=== PATIENT | male | born 1970 | race Caucasian/White ===

== ENCOUNTER → 2019-12-11 | Outpatient (CLI) | payer BC ==
[~2019-12-11] MED LIST: CATHETER FLUSH 10 ML SYR IV PRN; HOLD METFORMIN - RECEIVED CONTRAST 20 ML VIAL IV SCH; IOHEXOL 350 MG/ML 100 ML (OMNIPAQUE 350) VIAL IV ONE; NS 100 ML (IVPB) BAG IV ONE
[2019-12-11 14:56] LABS: HEMOGLOBIN 16.8 G/DL (13.3-17.7); MEAN PLATELET VOLUME 9.9 FL (7.4-10.4); RED CELL DISTRIBUTION WIDTH 12.1 % (10.0-14.5); WHITE BLOOD COUNT 12.5 10^3/uL (4.3-11.0)
[2019-12-11 15:14] LABS: ALBUMIN 4.8 GM/DL (3.2-4.5); CHLORIDE 98 MMOL/L (98-107)
[2019-12-11 15:15] LABS: POTASSIUM 3.7 MMOL/L (3.6-5.0); SODIUM 136 MMOL/L (135-145)
[2019-12-11 15:16] LABS: CALCIUM 9.8 MG/DL (8.5-10.1)
[2019-12-11 15:17] LABS: GLUCOSE 85 MG/DL (70-105); TOTAL PROTEIN 8.6 GM/DL (6.4-8.2)
[2019-12-11 15:18] LABS: CARBON DIOXIDE 26 MMOL/L (21-32)
[2019-12-11 15:19] LABS: BILIRUBIN,TOTAL 0.6 MG/DL (0.1-1.0)
[2019-12-11 15:20] LABS: ALKALINE PHOSPHATASE 78 U/L (40-136); CREATININE SERUM 1.18 MG/DL (0.60-1.30); GFR ESTIMATED > 60
[2019-12-11 15:21] LABS: BUN/CREATININE RATIO 12
[2019-12-11 15:23] LABS: ALANINE AMINOTRANSFERASE 118 U/L (0-55)
--- NOTE | 2019-12-11 16:14 | Diagnostic Imaging Report ---
EXAMINATION: CT Abdomen and Pelvis with intravenous contrast. TECHNIQUE: Multiple contiguous axial images were obtained through the abdomen and pelvis after the uneventful administration of intravenous contrast. All CT scans use one or more of the following dose optimizing techniques: automated exposure control, MA and/or KvP adjustment based on a patient size and exam type, or iterative reconstruction. HISTORY: Abdominal pain, umbilical hernia. COMPARISON: None available. FINDINGS: Limited views of the lower thorax are unremarkable. Liver is steatotic. No suspicious liver lesions are seen. There is no biliary ductal dilation. Gallbladder is normal. Pancreas is normal. Spleen is normal. Adrenal glands are normal. The kidneys are normal. There is no hydronephrosis. Urinary bladder is normal. Visualized bowel is normal in caliber without obstruction or inflammation. There is a small fat-containing umbilical hernia with a 10 mm mouth. There is no stranding in the hernia sac to indicate ischemia of the contents. No free fluid or air. No abdominal or pelvic lymphadenopathy. Aorta is normal in caliber without aneurysm. There are no suspicious osseous lesions. IMPRESSION: 1. Fat-containing umbilical hernia with a 10 mm mouth. Dictated by: Dictated on workstation # [id number]
[2019-12-14 17:01] LABS: AMYLASE 61 U/L (25-125)
[2019-12-14 17:10] LABS: LIPASE 40 U/L (8-78)
== END ==
LOC: RAD 14:45
PROVIDERS: ATTEND Physician Assistant
DX: K42.9 Umbilical hernia without obstruction or gangrene (principal)
CPT/HCPCS: 36415; 74177; 80053; 82150; 83690; 85027

== ENCOUNTER → 2019-12-22 | Outpatient (CLI) | payer BC ==
--- NOTE | 2019-12-22 09:49 | Diagnostic Imaging Report ---
CLINICAL INDICATION: Patient has chronic low back pain. Exam: MRI of the lumbar spine performed without IV contrast. Sagittal T2, sagittal T1, sagittal T2 fat-sat, and axial T2. Comparison: None. Findings: Five lumbar type vertebra are identified. Lumbar spine has normal alignment with no fracture or dislocation. The lumbar vertebra have normal T1 and T2 signal. The visualized portions of the distal spinal cord, conus medullaris, and cauda equina have normal anatomic appearance. The conus medullaris tip is seen at the upper L2 vertebral body level. No paraspinal soft tissue abnormality is seen. T11-T12: There is a subtle posterior disk bulge. There is no significant central canal or neural foramen narrowing. There is a chronic Schmorl's node involving the inferior T11 vertebra. There is partially visualized hypertrophic anterior disk spurs. T12-L1: There is chronic Schmorl's node involving the inferior endplate of the T12 vertebra. There is no significant disk bulge posteriorly. There is no significant central spinal canal or neural foramen narrowing. L1-L2: There is a minimal diffuse disk bulge with mild to moderate loss of disk space height. There is no significant central spinal canal or neural foramen narrowing. L2-L3: There is a mild diffuse disk bulge and mild bilateral facet arthropathy. There is moderate right neural foramen narrowing and moderate to severe left neural foramen narrowing. There is minimal central canal narrowing. L3-L4: There is a diffuse disk bulge with disk spurs extending into the foraminal regions bilaterally. There is mild to moderate bilateral facet arthropathy. There is mild central canal stenosis, severe right neural foramen narrowing and moderate to severe left neural foramen narrowing. There is Modic type I degenerative signal changes involving the L3-L4 endplates. L4-L5: There is mild diffuse disk bulge with disk spurs extending into the left foraminal region. There is moderate bilateral facet arthropathy. There is no significant central canal narrowing. There is moderate to severe right neural foramen narrowing and severe left neural foramen narrowing. There is no significant central canal narrowing. L5-S1: There is a subtle posterior disk bulge. There is mild to moderate bilateral facet arthropathy. There is no significant central canal narrowing. There is mild bilateral neural foramen narrowing (right side more than the left). IMPRESSION: 1: There is no acute lumbar spine fracture or dislocation. 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 Dictated by: Dictated on workstation # [id number]
== END ==
LOC: RAD 07:31
PROVIDERS: ATTEND Physician Assistant
DX: M51.17 Intervertebral disc disorders with radiculopathy, lumbosacral region (principal); M47.27 Other spondylosis with radiculopathy, lumbosacral region; M48.07 Spinal stenosis, lumbosacral region; M51.45 Schmorl's nodes, thoracolumbar region; M51.14 Intervertebral disc disorders with radiculopathy, thoracic region
CPT/HCPCS: 72148

== ENCOUNTER 2020-01-08 09:47 | Outpatient (CLI) | payer BC ==
[~2020-01-08] VITALS: Ht 177.8 cm; Wt 120.5 kg
[2020-01-08] MEDS ORDERED: OMEG100032 PO (10:12)
[2020-01-08] MEDS ORDERED: MULT-1102 PO (10:12)
[2020-01-08] MEDS ORDERED: LISI10TA2 PO (10:12)
[2020-01-08] MEDS ORDERED: CETI10TA17 PO (10:12)
[2020-01-08] MEDS ORDERED: THYR90TA PO (10:12)
== END 2020-01-08 10:24 | disposition home or self-care (01) ==
LOC: PREOP 09:47
PROVIDERS: ATTEND Surgery
DX: Z01.818 Encounter for other preprocedural examination (principal)

== ENCOUNTER 2020-01-14 06:11 | Day surgery (SDC) | payer BC ==
[~2020-01-14] VITALS: Ht 177.8 cm; Wt 120.5 kg
[2020-01-14] VITALS (11 sets, daily range): BP systolic 112–155; BP diastolic 65–99
[~2020-01-14 06:11] MED LIST changes: -CATHETER FLUSH 10 ML SYR IV PRN; +CETI10TA17 PO; -HOLD METFORMIN - RECEIVED CONTRAST 20 ML VIAL IV SCH; -IOHEXOL 350 MG/ML 100 ML (OMNIPAQUE 350) VIAL IV ONE; +LISI10TA2 PO; +MULT-1102 PO; -NS 100 ML (IVPB) BAG IV ONE; +OMEG100032 PO; +THYR90TA PO
[2020-01-14] MEDS ORDERED: CLINDAMYCIN 600 MG/50 ML IVPB 50 ML IV ONE (06:30)
[2020-01-14] MEDS: LACTATED RINGERS 1,000 ML IV PRN ×2 (06:47→08:40)
[2020-01-14 06:58] LABS: BASOPHILS % (AUTO) 1 % (0-10); EOSINOPHILS # (AUTO) 0.2 10^3/uL (0.0-0.3); EOSINOPHILS % (AUTO) 3 % (0-10); HEMATOCRIT 46 % (40-54); HEMOGLOBIN 15.5 g/dL (13.3-17.7); LYMPHOCYTES # (AUTO) 1.5 10^3/uL (1.0-4.0); LYMPHOCYTES % (AUTO) 23 % (12-44); MEAN CORPUSCULAR HEMOGLOBIN 33 pg (25-34); MEAN CORPUSCULAR HGB CONC 34 g/dL (32-36); MEAN CORPUSCULAR VOLUME 97 fL (80-99); MONOCYTES # (AUTO) 0.9 10^3/uL (0.0-1.0); MONOCYTES % (AUTO) 14 % (0-12); NEUTROPHILS # (AUTO) 3.6 10^3/uL (1.8-7.8); NEUTROPHILS % (AUTO) 58 % (42-75); PLATELET COUNT 205 10^3/uL (130-400); WHITE BLOOD COUNT 6.2 10^3/uL (4.3-11.0)
[2020-01-14] MEDS ORDERED: NEOSTIGMINE 3 MG/3 ML VIAL ONE (07:03)
[2020-01-14] MEDS ORDERED: ROCURONIUM 10 MG/ML 5 ML SYRINGE IV ONE (07:03)
[2020-01-14] MEDS ORDERED: SEVOFLURANE (ULTANE) 15 ML INHAL SOLN ONE ×2 (07:03→09:28)
[2020-01-14] MEDS ORDERED: proPOfol 200 MG/20 ML (DIPRIVAN) VIAL IV ONE (07:03)
[2020-01-14] MEDS ORDERED: LIDOCAINE PF 2% 5 ML (XYLOCAINE) VIAL ONE (07:03)
[2020-01-14] MEDS ORDERED: MIDAZOLAM 2 MG/2 ML (VERSED) VIAL ONE (07:03)
[2020-01-14] MEDS ORDERED: GLYCOPYRROLATE 0.2 MG/ML (ROBINUL) 2 ML VIAL ONE (07:03)
[2020-01-14] MEDS ORDERED: ONDANSETRON 4 MG/2 ML (SDV) Z0FRAN ONE (07:03)
[2020-01-14] MEDS ORDERED: fentaNYL INJECTION 100 MCG/2 ML AMP ONE (07:04)
[2020-01-14] MEDS ORDERED: BUP/EPI 0.25% 1:200,000 (MARCAINE) 30 ML VIAL ONE (07:17)
--- NOTE | 2020-01-14 07:57 | Progress Note-Pre Operative ---
Pre-Operative Progress Note H&P Reviewed The H&P was reviewed, patient examined and no changes noted. Date Seen by Provider: Jan 14, 2020 Time Seen by Provider: 07:56 Date H&P Reviewed: Jan 14, 2020 Time H&P Reviewed: 07:57 Pre-Operative Diagnosis: umbilical hernia GARRY DUBOIS DO Jan 14, 2020 07:57
[2020-01-14] MEDS ORDERED: HYDROmorphone 2 MG/ML VIAL (DILAUDID) ONE (09:08)
--- NOTE | 2020-01-14 09:25 | Progress Note-Post Operative ---
Post-Operative Progess Note Surgeon (s)/Mixing Engineer (s) Surgeon GARRY DUBOIS DO Mixing Engineer: Jade Chau [id number] Pre-Operative Diagnosis umbilical hernia Post-Operative Diagnosis incarcerated umbilical hernia Procedure & Operative Findings Date of Procedure 01/14/20 Procedure Performed/Findings PROCEDURE: Laparoscopic incarcerated umbilical hernia repair with mesh. COMPLICATIONS: None. INDICATIONS: The patient is a 49, male with an umbilical hernia, which has continued to increase in size and cause discomfort. The patient was explained the risk and benefits of the procedure and wished to proceed with the procedure. Consent was signed on the chart. DESCRIPTION OF PROCEDURE: The patient was taken into the operating suite, prepped and draped in sterile fashion. Surgical pause was performed. Local anesthetic was infiltrated in left upper quadrant. A 15 blade scalpel was used to make a small skin incision. Cautery was used to dissect down to the fascia, which was then scored and divided the muscle, went through the posterior sheath and a balloon trocar was inserted into the abdomen. The abdomen was then insufflated. Incarcerated fat at umbilicus. A 5 mm trocar was placed in the right lower quadrant and a 5 mm trocar was placed in left lower quadrant. Ligasure was used to free the incarcerated fat and reduced it. Echo Ventralight mesh was then inserted in the abdomen grabbed through the stab incision. The balloon was inflated on the mesh. Circumferential tacks were placed with a SecureStrap Tacker. The balloon was then removed and inner crown was created as well. The mesh was tacked with pressure being decreased. The 12 mm fascial defect was then closed using 0 Vicryl. The abdomen was then desufflated,the trocars were removed. The skin was then closed using 4-0 Monocryl in a running subcuticular fashion. The abdomen was washed and dried and Skin Affix was placed over the incisions. The patient tolerated procedure well without any complications. She was taken to recovery room in stable condition. Anesthesia Type general Estimated Blood Loss Estimated blood loss (mL): min Specimens/Packing Specimens Removed GARRY Bear DO Jan 14, 2020 09:25
[2020-01-14] MEDS ORDERED: HYDR-4226 PO (09:27)
[2020-01-14] MEDS ORDERED: DOCU-143 PO (09:27)
[2020-01-14] MEDS ORDERED: HYDROcodone/APAP 5 MG/325 MG (LORTAB) TAB PO PRN (09:30)
--- NOTE | 2020-01-14 09:30 | Discharge Inst-Simple/Standard ---
Discharge Inst-Standard Discharge Medications New, Converted or Re-Newed RX: RX on Chart Patient Instructions/Follow Up Plan of Care/Instructions/FU: 2-3 weeks Dwight Activity as Tolerated: No Discharge Diet: Regular Diet Other Inst to Patient Follow up Appt: Make appointment for 2-3 week. Instructions: No lifting greater than 10 pounds. No strenuous activity. May shower in 24 hours, no tub bath or soaking. Use incentive spirometer at home as directed. No Smoking Skin/Wound Care: You have special glue over your incision that will fall off on it's own. Remove bandage at umbilicus in 2 days. Symptoms to Report: Appetite Changes, Extremity Discoloration, Numbness/Tingling, Swelling Increased, Bleeding Excessive, Eyesight Changes, Pain Increased, Urine Color Change, Constipation(Persistent), Fever over 101 degree F, Pain/Pressure in chest, Urinating Difficulty, Cough Up/Vomit Blood, Heart Beat Irreg/Pounding, Pain/Pressure in jaw, Vaginal Bleeding Increase, Cramps in feet or legs, Lightheadedness, Pain/Pressure in shoulder, Diarrhea(Persistent), Memory Changes Suddenly, Questions/Concerns, Weight gain consecutive days, Dizziness/Fainting, Nausea/Vomiting, Shortness of Breath, Weight gain over 2 pounds If questions or concerns contact your physician Or seek help at emergency department. GARRY DUBOIS DO Jan 14, 2020 09:30
[2020-01-14] MEDS ORDERED: HYDROmorphone 2 MG/ML VIAL (DILAUDID) IV ONE (09:45)
[2020-01-14] MEDS ORDERED: morphine INJ 10 MG/ML 1ML (SYR OR VIAL) IVP ONE (09:45)
[2020-01-14] MEDS ORDERED: ONDANSETRON 4 MG/2 ML (SDV) Z0FRAN IVP PRN (09:45)
--- NOTE | 2020-01-14 14:24 | Anesthesia-General Post-Op ---
General Patient Condition Mental Status/LOC: Same as Preop Cardiovascular: Satisfactory Nausea/Vomiting: Absent Respiratory: Satisfactory Pain: Controlled Complications: Absent Post Op Complications Complications None Follow Up Care/Instructions Patient Instructions None needed. Anesthesia/Patient Condition Patient Condition Patient was seen this morning after the procedure and he was doing well, no complaints, stable vital signs, no apparent adverse anesthesia problems. BRIGID BRADFORD DO Jan 14, 2020 14:24
== END 2020-01-14 11:35 | disposition home or self-care (01) ==
LOC: SDC 06:11
PROVIDERS: ATTEND Surgery
DX: K42.0 Umbilical hernia with obstruction, without gangrene (principal); I10 Essential (primary) hypertension; J45.909 Unspecified asthma, uncomplicated; E03.9 Hypothyroidism, unspecified; E66.9 Obesity, unspecified; Z68.38 Body mass index [BMI] 38.0-38.9, adult; Z79.899 Other long term (current) drug therapy; Z88.0 Allergy status to penicillin; Z83.3 Family history of diabetes mellitus
CPT/HCPCS: 49653; 85025; 87081; C1781; 36415

== ENCOUNTER → 2020-05-20 | Outpatient (CLI) | payer BC ==
[~2020-05-20] MED LIST changes: +DOCU-143 PO; +HYDR-4226 PO
== END ==
LOC: LABNPT 05:19
PROVIDERS: ATTEND Internal Medicine
DX: Z20.822 Contact with and (suspected) exposure to COVID-19 (principal)
CPT/HCPCS: 87635

== ENCOUNTER → 2022-05-23 | Outpatient (CLI) | payer BC ==
[~2022-05-23] MED LIST changes: -LISI10TA2 PO; +LISI10TA25 PO
--- NOTE | 2022-05-23 12:58 | Diagnostic Imaging Report ---
Indication: Cough with chest pain and difficulty breathing AP view of the chest is obtained with multiple oblique views of left ribs. Heart size and pulmonary vascularity are within normal limits. There is a mildly displaced fracture involving the posterior lateral aspect of left 8th rib. No pneumothorax or significant pleural reaction is identified. No midline shift is seen. There is mild diffuse thoracic spondylosis without other acute osseous abnormality detected. IMPRESSION: Mildly displaced left 8th rib fracture otherwise no acute abnormality is seen in the chest. Dictated by: Dictated on workstation # [id number]
== END ==
LOC: RAD 12:20
PROVIDERS: ATTEND Physician Assistant
DX: S22.39XA Fracture of one rib, unspecified side, initial encounter for closed fracture (principal)
CPT/HCPCS: 71101